=== PATIENT | male | born 1965 | race Caucasian/White ===

== ENCOUNTER 2018-12-11 09:14 | Outpatient (CLI) | payer BC | END 2018-12-11 09:15 | disposition critical access hospital (66) | LOC: EMS 09:14 | PROVIDERS: ATTEND Surgery | DX: R25.2 Cramp and spasm (principal) | CPT/HCPCS: A0425; A0429 ==

== ENCOUNTER 2018-12-11 09:33 | Emergency (ER) | payer BC ==
[2018-12-11] MEDS ORDERED: MORPHINE 10 MG/ML VIAL IVP STA (09:58)
[2018-12-11] MEDS ORDERED: LORazepam 2 MG/ML VIAL IVP STA (09:58)
[2018-12-11] MEDS ORDERED: KETOROLAC 30 MG/ML VIAL IVP STA (09:58)
[2018-12-11] MEDS ORDERED: BUPIVACAINE 0.5%-EPI 1:200000 PF 10 ML VIAL SUBQ STA (09:59)
[2018-12-11] MEDS ORDERED: TRIAMCINOLONE 40 MG/ML VIAL IM STA (09:59)
--- NOTE | 2018-12-11 09:59 | ED Physician Documentation ---
PD HPI BACK PAIN - Stated complaint Stated Complaint: BACK SPASM - Chief complaint Chief Complaint: Back Pain - History obtained from History obtained from: Patient - History of Present Illness Timing - onset: How many hours ago (1), Today Timing - duration: Hours (1) Timing - details: Abrupt onset, Still present Location: Lower, Right Quality: Pain, Spasm Associated symptoms: No: Fever, Weakness, Numbness, Incontinent of urine Improves with: No: Rest Worsened by: Movement Contributing factors: Twisting (he just bent over slightly and felt onset of twinge in low back then severe spasm and tightness developed. Worse with any attempted ROM. Has had similar muscle spasms in the past episodically with mild injury/movement. No chronic back pain between episodes.) Similar symptoms before: Diagnosis (muscle spasms) Recently seen: Not recently seen Review of Systems Constitutional: denies: Fever, Chills, Myalgias Nose: denies: Rhinorrhea / runny nose, Congestion Throat: denies: Sore throat Cardiac: denies: Chest pain / pressure Respiratory: denies: Cough GI: reports: Nausea. denies: Abdominal Pain, Vomiting, Diarrhea : denies: Dysuria, Frequency, Hematuria Skin: denies: Rash, Lesions Musculoskeletal: reports: Back pain Neurologic: denies: Focal weakness, Numbness PD PAST MEDICAL HISTORY - Past Medical History Past Medical History: Yes Cardiovascular: High cholesterol Endocrine/Autoimmune: None Musculoskeletal: None - Past Surgical History Past Surgical History: Yes General: Hiatal hernia repair - Present Medications Home Medications: Ambulatory Orders Medication Instructions Recorded Confirmed Atorvastatin [Lipitor] 20 mg ORAL DAILY 12/11/18 12/11/18 Naproxen 500 mg PO BID #20 tablet 12/11/18 Oxycodone HCl/Acetaminophen 1 - 2 each PO Q6H PRN #25 tablet 12/11/18 [Percocet 5-325 mg Tablet] diazePAM [Valium] 5 mg PO TID PRN #15 tablet 12/11/18 - Allergies Allergies/Adverse Reactions: Allergies Allergy/AdvReac Type Severity Reaction Status Date / Time No Known Drug Allergies Allergy Verified 12/11/18 09:39 - Social History Does the pt smoke?: No Smoking Status: Former smoker Does the pt drink ETOH?: Yes Does the pt have substance abuse?: No - Immunizations Immunizations are current?: Yes PD ED PE NORMAL - Vitals Vital signs reviewed: Yes - General General: Alert and oriented X 3, Well developed/nourished, Other (appears in pain and with very guarded ROM of the lumbar area. ) - Neck Neck: Supple, no meningeal sign, No adenopathy - Cardiac Cardiac: RRR, No murmur - Respiratory Respiratory: Clear bilaterally - Abdomen Abdomen: Soft, Non tender - Back Back: No spinal TTP (but is tender in right lower to mid lumbar muscles just laterally. No rash nor sores. Focally tender in muscle area. ) - Derm Derm: Normal color, Warm and dry - Extremities Extremities: No tenderness to palpate, Normal ROM s pain, No edema, No calf tenderness / cord - Neuro Neuro: Alert and oriented X 3, No motor deficit, No sensory deficit, Normal speech, Other (normal reflexes in knees. ) Results - Vitals Vitals: Vital Signs - 24 hr 12/11/18 12/11/18 12/11/18 09:35 10:23 10:59 Temperature 36.3 C L Heart Rate 62 70 64 Respiratory 18 15 18 Rate Blood Pressure 116/90 H 127/79 114/85 H O2 Saturation 97 100 95 12/11/18 12/11/18 11:28 12:00 Temperature 37 C Heart Rate 62 57 L Respiratory 14 16 Rate Blood Pressure 125/85 H 123/80 O2 Saturation 95 96 Oxygen O2 Source Room air Procedures - General procedure General procedure: Trigger point injection at right paralumbar muscle in point of most focal te nderness at level of lateral L3. Marcaine and Kenalog used without problems. PD MEDICAL DECISION MAKING - ED course Complexity details: re-evaluated patient (sleepy from medications. Able to turn and roll better without severe spasms, but still hurting. ), considered differential (low back spasm with minimal injury and no red flags. ), d/w patient Departure - Departure Disposition: 01 Home, Self Care Clinical Impression: Back muscle spasm Condition: Stable Record reviewed to determine appropriate education?: Yes Instructions: ED Spasm Back No Trauma Prescriptions: diazePAM [Valium] 5 mg PO TID PRN #15 tablet PRN Reason: Spasms Naproxen 500 mg PO BID #20 tablet Oxycodone HCl/Acetaminophen [Percocet 5-325 mg Tablet] 1 - 2 each PO Q6H PRN #25 tablet PRN Reason: pain Comments: Heat and gentle range of motion and stretching for the back muscles. Naproxen or ibuprofen 3 times a day for the next week for inflammation. Add Valium muscle relaxant initially and then use your prior muscle relaxant as things are improving. Percocet if needed for pain. Recheck if not improved over the next several days. Discharge Date/Time: 12/11/18 12:14
[2018-12-11 12:01] VITALS: BP 123/80
== END 2018-12-11 12:14 | disposition home or self-care (01) ==
LOC: EDUNIT# → ED 09:33
DX: M62.830 Muscle spasm of back (principal); M54.5 Low back pain; Z87.891 Personal history of nicotine dependence
CPT/HCPCS: 20552; 96374; 99283; J2060

== ENCOUNTER 2022-11-16 12:17 | Outpatient (CLI) | payer OTHER | END 2022-11-16 12:18 | disposition EMS.NT | LOC: EMS 12:17 | DX: R42 Dizziness and giddiness (principal); R51.9 Headache, unspecified; R53.1 Weakness ==